=== PATIENT | male | born 1990 | race Caucasian/White ===

== ENCOUNTER 2024-01-01 13:45 | Emergency (ER) | payer SELFPAY ==
[2024-01-01 13:55] VITALS: BP 124/67; PULSE 81; RESP 18; TEMP 97.6; BMI 28.0
== END 2024-01-01 16:16 | disposition home or self-care (01) ==
LOC: JERFT 13:45
DX: L25.5 Unspecified contact dermatitis due to plants, except food (principal); L29.9 Pruritus, unspecified; R21 Rash and other nonspecific skin eruption
CPT/HCPCS: 99283-25